=== PATIENT | female | born 1995 | race Caucasian/White ===

== ENCOUNTER 2017-12-25 12:25 | Emergency (ER) | payer OTHER ==
[2017-12-25] MEDS ORDERED: NEOSPORIN OINT 0.9 GM PKT (FLOOR STOCK) As Ordered (14:31)
== END 2017-12-25 14:46 | disposition home or self-care (01) ==
LOC: M ED 12:25
DX: S61.210A Laceration without foreign body of right index finger without damage to nail, initial encounter (principal); W26.0XXA Contact with knife, initial encounter; Y92.9 Unspecified place or not applicable; Y93.E9 Activity, other interior property and clothing maintenance; Y99.9 Unspecified external cause status
CPT/HCPCS: 12001

== ENCOUNTER 2020-04-29 16:28 | Emergency (ER) | payer OTHER ==
[~2020-04-29] VITALS: Ht 157.5 cm; Wt 59.1 kg
[2020-04-29 16:28] VITALS: BP 121/69
== END 2020-04-29 22:21 | disposition left against medical advice (07) ==
LOC: M ED 16:28
DX: Z53.21 Procedure and treatment not carried out due to patient leaving prior to being seen by health care provider (principal)

== ENCOUNTER 2020-06-17 16:48 | Emergency (ER) | payer OTHER ==
[~2020-06-17] VITALS: Ht 157.5 cm; Wt 60.2 kg
[2020-06-17 19:25] VITALS: BP 118/71
== END 2020-06-17 19:26 | disposition home or self-care (01) ==
LOC: M ED 16:48
DX: A63.0 Anogenital (venereal) warts (principal)

== ENCOUNTER 2020-09-06 00:17 | Inpatient (IN) | payer OTHER ==
[~2020-09-06] VITALS: Ht 157.5 cm; Wt 59.1 kg
[2020-09-06 00:57] LABS: HEMATOCRIT 35.6 % (36.0-47.0); HEMOGLOBIN 11.3 g/dl (12.0-15.5); MEAN CORPUSCULAR HGB CONC 31.7 g/dl (32.0-36.5); MEAN CORPUSCULAR VOLUME 88.1 fl (80.0-96.0); PLATELET COUNT, AUTOMATED 414 10^3/uL (150-450); RED BLOOD COUNT 4.04 10^6/uL (4.00-5.40); WHITE BLOOD COUNT 12.3 10^3/uL (4.0-10.0)
[2020-09-06 01:29] LABS: HCG, SERUM QUALITATIVE NEGATIVE (NEGATIVE)
[2020-09-06 01:41] LABS: ACETAMINOPHEN LEVEL < 2.0 UG/ML (10.0-30.0); ALBUMIN 3.8 GM/DL (3.2-5.2); ALT/SGPT 16 U/L (12-78); BILIRUBIN,DIRECT 0.1 MG/DL (0.0-0.2); BILIRUBIN,TOTAL 0.2 MG/DL (0.2-1.0); BLOOD UREA NITROGEN 16 MG/DL (7-18); CALCIUM LEVEL 9.3 MG/DL (8.5-10.1); CARBON DIOXIDE LEVEL 26 MEQ/L (21-32); CHLORIDE LEVEL 105 MEQ/L (98-107); CREATININE FOR GFR 0.75 MG/DL (0.55-1.30); ETHYL ALCOHOL (ETHANOL) < 0.003 % (0.000-0.010); GLOMERULAR FILTRATION RATE > 60.0 (>60); GLUCOSE, FASTING 89 MG/DL (70-100); POTASSIUM SERUM 3.8 MEQ/L (3.5-5.1); SALICYLATE LEVEL < 1.7 MG/DL (5.0-30.0); SODIUM LEVEL 137 MEQ/L (136-145); TOTAL PROTEIN 8.1 GM/DL (6.4-8.2)
[2020-09-06 04:58] LABS: AMPHETAMINES LEVEL URINE NEGATIVE (NEGATIVE); BARBITURATES URINE NEGATIVE (NEGATIVE); BENZODIAZEPINES URINE NEGATIVE (NEGATIVE); CANNABINOIDS URINE NEGATIVE (NEGATIVE); COCAINE METABOLITE URINE NEGATIVE (NEGATIVE); METHADONE URINE NEGATIVE (NEGATIVE); OPIATES URINE NEGATIVE (NEGATIVE); PHENCYCLIDINE URINE NEGATIVE (NEGATIVE)
[2020-09-06 05:15] LABS: RSV AMPLIFICATION NEGATIVE (NEGATIVE)
[2020-09-06] MEDS ORDERED: ACETAMINOPHEN TAB 650MG DOSE (2X325MG) PO ONE ×2 (10:45→23:30)
--- NOTE | 2020-09-06 20:01 | ECGEPIP ---
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
[2020-09-07] MEDS ORDERED: traZODone 50 MG TAB PO PRN (15:20)
[2020-09-07] MEDS ORDERED: MOM 30ML SUSPENSION UDC PO PRN (15:20)
[2020-09-07] MEDS ORDERED: ACETAMINOPHEN TAB 650MG DOSE (2X325MG) PO PRN (15:20)
[2020-09-07] MEDS ORDERED: MAALOX 30 ML SUSP *UDC PO PRN (15:20)
[2020-09-07 16:19] VITALS: BP 113/74
[2020-09-08 06:34] VITALS: BP 121/63
--- NOTE | 2020-09-08 11:42 | MHHPE ---
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 CHIEF COMPLAINT: "I just had some suicidal thoughts, but now I don't have it." HISTORY OF PRESENT ILLNESS: The patient is texted a coworker stating that she has suicidal thoughts who called the police and brought to the hospital. She told the coworker that she was feeling like cutting her wrists with scissors. This is her first psychiatric hospitalization. Denies that she has suicidal thoughts now. Reports sleep and appetite are good. No other vegetative symptoms of depression. Her stress is they are going through the process of a divorce and she feels she is not treated well at the work place. Denies any history of manic episodes or anxiety symptoms. PAST PSYCHIATRIC HISTORY: One year ago, the patient cut herself and she was treated outpatient with therapy without any medications. DRUG/ALCOHOL HISTORY: The patient denies drug or alcohol use. PAST MEDICAL HISTORY: Denies medical problems. FAMILY HISTORY: Denies family history of mental illness. PERSONAL HISTORY: She was raised by both parents in [place], [place]. She was raised there, completed high school graduation, and jointed the [employer]. She has three sisters and one brother. No abuses. MENTAL STATUS EXAMINATION: Casually dressed, cooperative, and made good eye contact. Speech rate, rhythm, and volume are good. Mood is mildly anxious. Affect is appropriate for the mood. Thought process is goal directed, linear. Thought content denied any suicidal or homicidal ideas. Denied hopelessness. There is no preoccupation. Denied auditory hallucinations. Memory immediate, remote, and recent are good. Her insight and judgment are fair. VITAL SIGNS: Temperature of 98.1, respiratory rate of 16, pulse is 81, pulse oximetry 100. LABORATORY DATA: CBC within normal limits. CMP within normal limits. Toxicology was negative. REVIEW OF SYSTEMS: Constitutional: No night sweats. No weight loss. HEENT: Negative for epistaxis, headache, hearing loss, or sore throat. Respiratory: No cough. No shortness of breath. No wheezing. Cardiovascular: Negative for chest pain, dyspnea on exertion. Gastrointestinal: No abdominal pain. No change in bowel habits. No black tarry stools. Genitourinary: No dysuria. No hematuria. Musculoskeletal: Negative for gait disturbances, joint pain, or swelling. Neurological: Negative for gait disturbance, numbness, or tingling. DIAGNOSIS: Depressive disorder, NOS; rule out adjustment disorder with depressed mood. ASSESSMENT: Admit the patient to [facility]. The patient will be seen by hospitalist for medical needs. The patient will be kept on suicide watch. She will be seen by [facility] and occupational therapist. The patient will attend groups. She will be seen for individual therapy and milieu therapy. For medications, the patient will be given some anti-anxiety medications. She does not want to take any medicines at this time. I will observe on the unit and if she needs medication, we will place her on antidepressants. Estimated length of stay: 2-3 days. Time spent on the patient: 45 minutes.
--- NOTE | 2020-09-08 12:25 | HPEPDOC ---
[facility] Medical History & Physical Date of Admission Sep 07, 2020 Date of Service: Sep 08, 2020 Attending Physician: Chinyere Perez MD History and Physical MEDICAL CONSULT HISTORY OF PRESENT ILLNESS: Patient is a 25-year-old female with past history of depression who presented to [facility] emergency room accompanied by police after she was sending messages to a friend via text about wanting to hurt herself. 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 The patient states she has had multiple life stressors including going through a divorce with her and other issues at work which led her to confide in her friend. She has a history of cutting herself on her thigh and was told that this was a "coping mechanism". She admitted to her friend before admission here that she want to cut herself on her wrists to kill herself and that she had a plan. At the time of admission the patient admitted to suicidal ideation, hopelessness, poor concentration, depressed mood. She was admitted to inpatient mental health with a diagnosis of depression, suicidal ideation. On evaluation today the patient denies any suicidal ideations, denies a plan that she mentioned previously, she also denies any hopelessness, poor concentration, paranoia, anxiety, auditory or visual hallucinations, poor concentration, poor sleep. The patient had unremarkable labs. She had no acute complaints. REVIEW OF SYSTEMS: Neg except for what is mentioned above PAST MEDICAL HISTORY: Depression PAST SURGICAL HISTORY: None FAMILY HISTORY: Father: Healthy. Alive Mother: Healthy. Alive SOCIAL HISTORY: Denies smoking, alcohol or drug use. 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 [facility]. ALLERGIES: Please see below. HOME MEDICATIONS: Please see below. PHYSICAL EXAMINATION: VS: Please see below CONSTITUTIONAL: No acute distress, resting comfortably, AAO x 3 EYES: PERRLA, EOM intact HENT, MOUTH: Normocephalic, atraumatic, moist mucous membranes, NECK: SUPPLE, no JVD, no lymphadenopathy, no carotid bruit CV: Regular rate and rhythm, S1S2 normal, no murmurs/rubs/gallops RESPIRATORY: Clear to auscultation bilaterally, no rales/rhonchi/wheezes GI: BS positive in 4 quadrants, soft, nontender, nondistended, no rebound or guarding, no organomegaly : Deferred MUSCULOSKELETAL: Normal ROM. No cyanosis, clubbing, swelling, joint deformity, extremity edema INTEGUMENTARY: Intact, no rashes, no lesions, no erythema NEUROLOGIC: Cranial Nerves II-XII are intact, no focal deficits PSYCHIATRIC: Mood and affect are normal LABORATORY DATA: Please see below IMAGING: None ASSESSMENT: Patient is a 25-year-old female admitted to [facility] for depression, suicidal ideation. PLAN: Depression, suicidal ideations -Plan per psychiatric team DISPOSITION: Thank you kindly for this consult. Will sign off on this patient at this time but if we are needed again please do not hesitate to call at any time. Vital Signs Vital Signs Date Time Temp Pulse Resp B/P (MAP) Pulse Ox O2 Delivery O2 Flow Rate FiO2 09/08/20 08:19 Room Air 09/08/20 06:34 98.1 81 16 121/63 (82) 100 Home Medications No Active Prescriptions or Reported Meds Allergies Coded Allergies: No Known Allergies (Unverified , 12/25/17) A-FIB/CHADSVASC A-FIB History Current/History of A-Fib/PAF?: No Current PO Anticoag Therapy: No Age/Risk Factor Scoring CHADSVASC: CHADSVASC Response (Comments) Value Age Risk Factor Age < 65 years old 0 Gender Risk Factor Female 1 Hx of CHF No 0 Hx of HTN No 0 Hx of Stroke/TIA/or VTE No 0 Hx of Diabetes No 0 Hx of Vascular Disease No 0 Total 1 Treatment Treatment ordered: NONE Other anticoagulant ordered: none Chinyere Perez MD Sep 08, 2020 12:25
[2020-09-08 16:24] VITALS: BP 109/69
[2020-09-09 07:10] VITALS: BP 112/58
[2020-09-09 16:13] VITALS: BP 121/79
--- NOTE | 2020-09-09 17:48 | MHIPN ---
[facility] PROGRESS NOTE DATE: 09/09/2020 SUBJECTIVE: "I'm doing fine. 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 The patient texted a co-worker stating that she had suicidal thoughts. The person who was called, called the police and the patient was brought to the Emergency Department. The patient wanted to cut her wrists with scissors. This is her first psychiatric hospitalization, however the patient has a history of cutting her thighs in the past. Currently the patient is doing well. Denied any suicidal or homicidal ideas. She is attending groups. MENTAL STATUS EXAMINATION: Casually dressed thin build who is cooperative. Makes good eye contact. Speech good, intact, and goal directed. Thought process is linear and goal directed thought content. Denied any auditory hallucinations. Denied any suicidal or homicidal ideas. Mood is euthymic with appropriate affect. Memory images immediate, remote and recent are good. DIAGNOSIS: 1. Depressed mood disorder, not otherwise specified. 2. Rule out adjustment disorder, depressed mood. ASSESSMENT AND PLAN: The patient currently is doing well, does not have any suicidal thoughts. Probably is an adjustment disorder. I will observe her for 24 hours and discharge her. VITAL SIGNS: Temperature of 97.8, pulse is 91, respiratory rate is 16, blood pressure is 112/58. Pulse oximetry 99.
[2020-09-10 06:00] VITALS: BP 139/91
--- NOTE | 2020-09-10 11:04 | MHDS ---
[facility] DISCHARGE SUMMARY DATE OF ADMISSION: 09/07/2020 DATE OF DISCHARGE: 09/10/2020 DIAGNOSES: 1. Depressive disorder, unspecified. 2. Rule out adjustment disorder with depressed mood. 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 For history of present illness, past psychiatric history, medical history, substance abuse history, social history, please refer to the initial evaluation. COURSE IN THE HOSPITAL: Patient was depressed, somewhat anxious. However, reported she had the stress of the separation from her and they are going through the process of divorce. She did not want to take any medications. However, patient was willing to attend the groups. Individual and group therapy was provided. Patent improved on the unit. Her sleep and appetite were better. There was not acting out behavior on the unit. Denied any suicidal thoughts. She was stable at the time of discharge. MENTAL STATUS EXAMINATION: Casually dressed and build. Made good eye contact. Speech is good, goal-directed. Denied any suicidal thoughts. Denied any auditory or visual hallucinations. Mood is euthymic with appropriate affect. Memory: Remote, immediate and recent are good. Insight and judgment are good. LABORATORY DATA: CBC and CMP within normal limits. ASSESSMENT: Patient is doing well. PLAN: Discharge to [facility]. She will be followed up at [facility].
== END 2020-09-10 09:51 | disposition home or self-care (01) | DRG 881 ==
LOC: M ED 00:17 → M ED INP 09-07 15:16 → M PSY 09-07 16:11
PROVIDERS: ADMIT Psychiatry & Neurology Psychiatry; ATTEND Psychiatry & Neurology Psychiatry
DX: F32.9 Major depressive disorder, single episode, unspecified (principal); R45.851 Suicidal ideations; F43.21 Adjustment disorder with depressed mood

== ENCOUNTER → 2022-06-20 | Outpatient (REF) | payer OTHER | LOC: M PLALAB 08:25 | PROVIDERS: ATTEND Advanced Practice Midwife | DX: Z34.80 Encounter for supervision of other normal pregnancy, unspecified trimester (principal) ==

== ENCOUNTER → 2022-06-20 | Outpatient (CLI) | payer OTHER ==
[2022-06-20 14:22] LABS: HEMATOCRIT 29.4 % (36.0-47.0); HEMOGLOBIN 8.8 g/dl (12.0-15.5); MEAN CORPUSCULAR HEMOGLOBIN 25.1 pg (27.0-33.0); MEAN CORPUSCULAR HGB CONC 29.9 g/dl (32.0-36.5); PLATELET COUNT, AUTOMATED 289 10^3/uL (150-450); WHITE BLOOD COUNT 14.1 10^3/uL (4.0-10.0)
[2022-06-20 15:21] LABS: HIV 1&2 SCREEN CENTAUR NEGATIVE (NEGATIVE)
[2022-06-20 15:30] LABS: HEPATITIS C VIRUS ABY INDEX 0.1 INDEX (<0.8)
== END ==
LOC: M PLALAB 09:14
PROVIDERS: ATTEND Advanced Practice Midwife
DX: Z34.83 Encounter for supervision of other normal pregnancy, third trimester (principal)

== ENCOUNTER → 2022-06-28 | Outpatient (CLI) | payer OTHER | LOC: M WHC 16:58 | PROVIDERS: ATTEND Advanced Practice Midwife | DX: Z53.9 Procedure and treatment not carried out, unspecified reason (principal) ==

== ENCOUNTER → 2022-06-28 | Outpatient (CLI) | payer OTHER | LOC: M WHC 15:13 | PROVIDERS: ATTEND Advanced Practice Midwife | DX: Z34.03 Encounter for supervision of normal first pregnancy, third trimester (principal); Z3A.38 38 weeks gestation of pregnancy ==

== ENCOUNTER 2022-07-06 11:47 | Inpatient (IN) | payer OTHER ==
[~2022-07-06] VITALS: Ht 157.5 cm; Wt 94.8 kg
[2022-07-06] VITALS (16 sets, daily range): BP systolic 116–146; BP diastolic 58–99
[2022-07-06] MEDS ORDERED: ACET500P3 PO (12:08)
[2022-07-06] MEDS ORDERED: PRENTAB9 PO (12:08)
[2022-07-06] MEDS ORDERED: ACET325C5 PO (12:08)
[2022-07-06] MEDS ORDERED: HOME MED LIST COMPLETE! XX SCH (12:25)
[2022-07-06 13:07] LABS: HEMATOCRIT 28.5 % (36.0-47.0); HEMOGLOBIN 8.5 g/dl (12.0-15.5); MEAN CORPUSCULAR HEMOGLOBIN 23.9 pg (27.0-33.0); MEAN CORPUSCULAR HGB CONC 29.8 g/dl (32.0-36.5); MEAN CORPUSCULAR VOLUME 80.3 fl (80.0-96.0); PLATELET COUNT, AUTOMATED 236 10^3/uL (150-450); RED BLOOD COUNT 3.55 10^6/uL (4.00-5.40); WHITE BLOOD COUNT 11.5 10^3/uL (4.0-10.0)
[2022-07-06 13:16] LABS: TOTAL PROTEIN,RANDOM URINE 22.4 MG/DL (0.0-14.0)
[2022-07-06 13:32] LABS: URIC ACID 4.9 MG/DL (3.1-7.8)
[2022-07-06 13:34] LABS: LDH LACTATE DEHYDROGENASE 226 U/L (120-246)
[2022-07-06 13:35] LABS: ALBUMIN 2.7 G/DL (3.2-5.2); ALKALINE PHOSPHATASE 173 U/L (46-116); ALT/SGPT 13 U/L (7.0-40); AST/SGOT 16 U/L (<34); BILIRUBIN,TOTAL 0.3 MG/DL (0.3-1.2); BLOOD UREA NITROGEN 9 MG/DL (9-23); CARBON DIOXIDE LEVEL 20 MMOL/L (20-31); CHLORIDE LEVEL 106 MMOL/L (98-107); CREATININE FOR GFR 0.52 MG/DL (0.55-1.30); GLOMERULAR FILTRATION RATE > 60.0 (>60); GLUCOSE, FASTING 67 MG/DL (60-100); POTASSIUM SERUM 4.3 MMOL/L (3.5-5.1); SODIUM LEVEL 136 MMOL/L (136-145); TOTAL PROTEIN 6.2 G/DL (5.7-8.2)
[2022-07-06] MEDS ORDERED: LACTATED RINGER'S 1000 ML IV STA (15:12)
[2022-07-06] MEDS ORDERED: CARBOPROST TROMETHAMINE 250 MCG/ML AMP IM PRN (15:15)
[2022-07-06] MEDS ORDERED: OXYTOCIN DRIP 30 UNITS in IV 1 EA IV PRN (15:15)
[2022-07-06] MEDS ORDERED: TRANEXAMIC ACID INJection 1,000 MG in NS 100 ML IV PRN (15:15)
[2022-07-06] MEDS ORDERED: LIDOCAINE 1% MDV 20ML VIAL INFIL PRN (15:15)
[2022-07-06] MEDS: miSOPROStol 50MCG 1/2 TABLET SL SCH ×2 (16:48→20:52)
[2022-07-07] VITALS (55 sets, daily range): BP systolic 105–175; BP diastolic 54–86
[2022-07-07] MEDS: miSOPROStol 50MCG 1/2 TABLET SL SCH ×2 (01:35→04:00)
[2022-07-07] MEDS ORDERED: OXYTOCIN DRIP 30 UNITS in IV 1 EA IV SCH (05:55)
[2022-07-07] MEDS: LR 1,000 ML IV SCH ×4 (07:50→22:09)
[2022-07-07] MEDS ORDERED: FENTANYL 2MCG/ML ROPIVACAINE 0.2% IN 0.9% NACL 100ML IVBAG As Ordered ONE (13:03)
[2022-07-07] MEDS ORDERED: ePHEDrine SULFATE 25 MG/5 ML(5MG/ML) SYRINGE IVP PRN (13:35)
[2022-07-07] MEDS ORDERED: diphenhydrAMINE 50MG/ML VIAL IV PRN (13:35)
[2022-07-07] MEDS ORDERED: LR 500 ML IV PRN (13:35)
[2022-07-07] MEDS ORDERED: NALOXONE INJ 0.4MG/1ML VIAL IV PRN (13:35)
[2022-07-07] MEDS ORDERED: ONDANSETRON 4MG 2ML VIAL IV PRN (13:35)
[2022-07-07] MEDS ORDERED: EPIDURAL/PCA KEYS XX PRN (13:35)
[2022-07-07] MEDS: FENTANYL/ROPIVACAINE/NACL BAG 100 ML EPIDURAL SCH ×2 (15:29→22:48)
[2022-07-07] MEDS ORDERED: CALCIUM CARBONATE 500 MG CHEW U/D PO PRN (18:35)
[2022-07-08] VITALS (18 sets, daily range): BP systolic 117–146; BP diastolic 67–99
[2022-07-08 04:34] LABS: CORD GAS ABE A -7.5; CORD GAS ABE V -6.9; CORD GAS HCO3 A 20.8 MEQ/L; CORD GAS HCO3 V 19.6 MEQ/L; CORD GAS O2 SAT A 27.6 %; CORD GAS O2 SAT V 70.5 %; CORD GAS PCO2 A 53.2 mmHg; CORD GAS PCO2 V 42.9 mmHg; CORD GAS PH A 7.211 UNITS; CORD GAS PH V 7.278 UNITS; CORD GAS PO2 A 16.1 mmHg; CORD GAS PO2 V 31.7 mmHg; CORD GAS SBC A 16.9 MEQ/L; CORD GAS SBC V 18.3 MEQ/L; CORD GAS TCO2 A 22.5 MEQ/L; CORD GAS TCO2 V 20.9 MEQ/L
[2022-07-08] MEDS ORDERED: OXYTOCIN DRIP 30 UNITS in IV 1 EA IV SCH (05:55)
[2022-07-08] MEDS ORDERED: DIBUCAINE 1% OINTMENT 30GM TOP PRN (05:55)
[2022-07-08] MEDS ORDERED: MOM 30ML SUSPENSION UDC PO PRN (05:55)
[2022-07-08] MEDS ORDERED: IBUPROFEN 600MG TAB PO PRN (05:55)
[2022-07-08] MEDS ORDERED: RHOGAM 300MCG (1500IU) INJ IM SCH (05:55)
[2022-07-08] MEDS ORDERED: ACETAMINOPHEN TAB 650MG DOSE (2X325MG) PO PRN (05:55)
[2022-07-08] MEDS ORDERED: SLF 3 ML SYR IV PRN (09:15)
[2022-07-08] MEDS: DOCUSATE SODIUM 100MG CAPSULE PO SCH ×2 (09:17→21:01)
[2022-07-08] MEDS: PRENATAL VITAMINS CHEWABLE TABLET PO SCH (09:17)
[2022-07-08] MEDS: ACETAMINOPHEN 500 MG TAB PO PRN ×2 (09:18→09:50)
[2022-07-08] MEDS: IBUPROFEN 800 MG TAB PO PRN (09:18)
[2022-07-08] MEDS: SLF 3 ML SYR IV SCH ×2 (16:07→21:01)
[2022-07-09 05:50] VITALS: BP 124/61
[2022-07-09] MEDS: SLF 3 ML SYR IV SCH ×3 (06:30→22:00)
[2022-07-09 06:33] LABS: MEAN CORPUSCULAR HEMOGLOBIN 23.8 pg (27.0-33.0); MEAN CORPUSCULAR HGB CONC 29.5 g/dl (32.0-36.5); MEAN CORPUSCULAR VOLUME 80.8 fl (80.0-96.0); PLATELET COUNT, AUTOMATED 184 10^3/uL (150-450); WHITE BLOOD COUNT 16.2 10^3/uL (4.0-10.0)
[2022-07-09 06:37] LABS: HEMOGLOBIN 6.2 g/dl (12.0-15.5)
[2022-07-09 07:05] VITALS: BP 134/83
[2022-07-09] MEDS: DOCUSATE SODIUM 100MG CAPSULE PO SCH ×2 (07:42→22:14)
[2022-07-09] MEDS: PRENATAL VITAMINS CHEWABLE TABLET PO SCH (07:43)
[2022-07-09 18:00] VITALS: BP 136/74
[2022-07-09] MEDS: IBUPROFEN 800 MG TAB PO PRN (19:46)
[2022-07-10] VITALS (8 sets, daily range): BP systolic 119–134; BP diastolic 64–86
[2022-07-10] MEDS: SLF 3 ML SYR IV SCH ×2 (06:00→21:51)
[2022-07-10 06:56] LABS: MEAN CORPUSCULAR HEMOGLOBIN 23.6 pg (27.0-33.0); MEAN CORPUSCULAR HGB CONC 28.6 g/dl (32.0-36.5); MEAN CORPUSCULAR VOLUME 82.4 fl (80.0-96.0); PLATELET COUNT, AUTOMATED 196 10^3/uL (150-450); WHITE BLOOD COUNT 12.7 10^3/uL (4.0-10.0)
[2022-07-10 07:00] LABS: HEMATOCRIT 20.6 % (36.0-47.0)
[2022-07-10 07:01] LABS: HEMOGLOBIN 5.9 g/dl (12.0-15.5)
[2022-07-10] MEDS: DOCUSATE SODIUM 100MG CAPSULE PO SCH ×2 (08:53→21:32)
[2022-07-10] MEDS: PRENATAL VITAMINS CHEWABLE TABLET PO SCH (08:53)
[2022-07-10] MEDS: ACETAMINOPHEN 500 MG TAB PO PRN (08:56)
[2022-07-10] MEDS ORDERED: MEASLES,MUMPS,RUBELLA VACCINE INJ (MMR-II) SC.IMMUN ONE (09:00)
[2022-07-11 05:54] VITALS: BP 125/74
[2022-07-11 06:09] LABS: HEMATOCRIT 26.8 % (36.0-47.0); MEAN CORPUSCULAR HEMOGLOBIN 25.5 pg (27.0-33.0); MEAN CORPUSCULAR VOLUME 82.5 fl (80.0-96.0); PLATELET COUNT, AUTOMATED 237 10^3/uL (150-450); RED BLOOD COUNT 3.25 10^6/uL (4.00-5.40)
[2022-07-11 06:19] LABS: HEMOGLOBIN 8.3 g/dl (12.0-15.5)
[2022-07-11 06:36] LABS: ALKALINE PHOSPHATASE 112 U/L (46-116); ALT/SGPT 67 U/L (7.0-40); AST/SGOT 76 U/L (<34); BILIRUBIN,TOTAL 0.4 MG/DL (0.3-1.2); BLOOD UREA NITROGEN 9 MG/DL (9-23); CALCIUM LEVEL 8.1 MG/DL (8.5-10.1); CARBON DIOXIDE LEVEL 23 MMOL/L (20-31); CHLORIDE LEVEL 108 MMOL/L (98-107); CREATININE FOR GFR 0.52 MG/DL (0.55-1.30); GLOMERULAR FILTRATION RATE > 60.0 (>60); GLUCOSE, FASTING 95 MG/DL (60-100); POTASSIUM SERUM 4.2 MMOL/L (3.5-5.1); SODIUM LEVEL 139 MMOL/L (136-145); TOTAL PROTEIN 4.9 G/DL (5.7-8.2)
[2022-07-11] MEDS: SLF 3 ML SYR IV SCH (07:28)
[2022-07-11] MEDS: PRENATAL VITAMINS CHEWABLE TABLET PO SCH (08:24)
[2022-07-11] MEDS: IBUPROFEN 800 MG TAB PO PRN (08:25)
[2022-07-11] MEDS: DOCUSATE SODIUM 100MG CAPSULE PO SCH (08:25)
[2022-07-11] MEDS ORDERED: COLA100C5 PO (13:00)
[2022-07-11] MEDS ORDERED: ACET-683 PO (13:00)
[2022-07-11] MEDS ORDERED: IBUP-1022 PO (13:00)
== END 2022-07-11 13:35 | disposition home or self-care (01) | DRG 807 ==
LOC: M LDO 11:47 → M LDI 15:03 → M OBS 07-08 09:43
PROVIDERS: ADMIT Obstetrics & Gynecology; ATTEND Advanced Practice Midwife
PROC: 3E0P7GC Introduction of Other Therapeutic Substance into Female Reproductive, Via Natural or Artificial Opening (ICD-10-PCS; 2022-07-06)
PROC: 10907ZC Drainage of Amniotic Fluid, Therapeutic from Products of Conception, Via Natural or Artificial Opening (ICD-10-PCS; 2022-07-07)
PROC: 10E0XZZ Delivery of Products of Conception, External Approach (ICD-10-PCS; principal; 2022-07-08)
PROC: 0KQM0ZZ Repair Perineum Muscle, Open Approach (ICD-10-PCS; 2022-07-08)
PROC: 30233N1 Transfusion of Nonautologous Red Blood Cells into Peripheral Vein, Percutaneous Approach (ICD-10-PCS; 2022-07-09)
DX: O14.04 Mild to moderate pre-eclampsia, complicating childbirth (principal); Z37.0 Single live birth; Z3A.38 38 weeks gestation of pregnancy; O99.02 Anemia complicating childbirth; D64.9 Anemia, unspecified; O66.0 Obstructed labor due to shoulder dystocia; O70.1 Second degree perineal laceration during delivery